=== PATIENT | male | born 1965 | race Caucasian/White ===

== ENCOUNTER 2020-10-28 11:12 | Emergency (ER) | payer OTHER, SELFPAY ==
[2020-10-28] VITALS (11 sets, daily range): BP systolic 153–183; BP diastolic 80–105; PULSE 75–91; RESP 18; TEMP 36.6; O2SAT 97–100; BMI 31.5
--- NOTE | 2020-10-28 11:46 | ED.GENADULT ---
HPI - General Adult General Chief complaint: Abdominal Pain Stated complaint: stomach pain Time Seen by Provider: 10/28/20 11:39 Source: patient and family Mode of arrival: Ambulatory Limitations: no limitations Related Data Home Medications Medication Instructions Recorded Confirmed colchicine PO 05/16/19 05/16/19 lisinopril PO 05/16/19 05/16/19 Previous Rx's Medication Instructions Recorded naproxen 500 mg tablet 500 mg PO BID PRN #20 tab 05/16/19 prednisone 5 mg tablet 5 mg PO DAILY #29 tab 05/16/19 Patient History Social History Smoking Status: Former smoker Smoking Status: Former smoker alcohol intake frequency: 0-2 drinks per day Substance Use Type: does not use Exam Initial Vital Signs Initial Vital Signs: Vital Signs Temperature 98 F 10/28/20 11:21 Pulse Rate 87 10/28/20 11:21 Respiratory Rate 18 10/28/20 11:21 Blood Pressure 181/105 H 10/28/20 11:21 Pulse Oximetry 100 10/28/20 11:21 Course Vital Signs Vital signs: Vital Signs - 8 hr 10/28/20 11:21 Temperature 98 F Pulse Rate 87 Respiratory Rate 18 Blood Pressure 181/105 H Pulse Oximetry 100 Discharge Plan Departure Prescriptions: No Action colchicine PO RF: 0 lisinopril PO RF: 0 naproxen 500 mg tablet 500 mg PO BID PRN (Reason: pain) Qty: 20 RF: 0 prednisone 5 mg tablet 5 mg PO DAILY Qty: 29 RF: 0
--- NOTE | 2020-10-28 11:50 | ED.GENADULT ---
HPI - General Adult General Chief complaint: Abdominal Pain Stated complaint: stomach pain Time Seen by Provider: 10/28/20 11:39 Source: patient and family Mode of arrival: Ambulatory Limitations: no limitations History of Present Illness HPI narrative: Patient is a 54-year-old male who is concerned about constipation. Earlier this week he underwent a right shoulder surgery for rotator cuff repair and biceps tendon repair. He has been on pain medication. He states that yesterday and today started having left-sided abdominal pain. He thought potentially he was constipated as he felt like he had to have a bowel movement but then could not. He is also describing some urinary hesitancy. No fevers. He had has not taken any pain medicine since last evening because of the concern that was causing his issues. He has been on Colace. No fevers. Has had Meckel's diverticulum in the past with a bowel resection secondary to this. Related Data Home Medications Medication Instructions Recorded Confirmed colchicine PO 05/16/19 05/16/19 lisinopril PO 05/16/19 05/16/19 Previous Rx's Medication Instructions Recorded naproxen 500 mg tablet 500 mg PO BID PRN #20 tab 05/16/19 prednisone 5 mg tablet 5 mg PO DAILY #29 tab 05/16/19 Allergies Allergy/AdvReac Type Severity Reaction Status Date / Time No Known Drug Allergies Allergy Verified 10/28/20 12:05 Review of Systems Constitutional Constitutional: Denies fever(s) and Denies headache(s) ENT Ears, Nose, Mouth, and Throat: Denies headache(s) Cardiovascular Cardiovascular: Denies chest pain and Denies dyspnea Respiratory Respiratory: Denies dyspnea Gastrointestinal Gastrointestinal: Reports abdominal pain, Reports constipation, Reports nausea and Denies vomiting Genitourinary Genitourinary: Denies dysuria Genitourinary: Denies dysuria Musculoskeletal Musculoskeletal: Denies arthralgias and Denies myalgias Integumentary/Breasts Skin/Breast: Denies lesions and Denies rash Neurologic Neurologic: Denies behavioral changes, Denies confusion and Denies headache(s) Psychiatric Psychiatric: Denies behavioral changes and Denies confusion Hematologic/Lymphatic Hematologic/Lymphatic: Denies easy bleeding and Denies easy bruising Allergic/Immunologic Allergic/Immunologic: Denies urticaria Patient History Medical History Meckel's diverticulum Surgical History History of bowel resection Social History Smoking Status: Former smoker Smoking Status: Former smoker alcohol intake frequency: 0-2 drinks per day Substance Use Type: does not use Exam Initial Vital Signs Initial Vital Signs: Vital Signs Pulse Oximetry 100 10/28/20 11:19 Const General: cooperative and comfortable Limitations: mental status not altered HENIA Head: normal to inspection and normocephalic Resp Effort & Inspection: normal respiratory effort Auscultation: clear to auscultation bilaterally Cardio Rate: regular rate Rhythm: regular rhythm GI Inspection: non-distended Palpation: soft and tender (Left side of abdomen) Skin Lesions: no lesions Rashes: no rashes Neuro General: patient alert and patient awake Cognition: normal cognition Speech: speech normal Extrem General: capillary refill normal Other: Right shoulder in sling with surgical bandages in place Psych Appearance: grossly normal and well kempt Course Orders Ordered: ED Orders 10/28/20 12:10 Complete Blood Count AUTO DIFF Stat Comprehensive Metabolic Panel Stat Lipase Stat 10/28/20 12:49 CT abdomen pelvis w con Stat Discontinued Medications Hydromorphone HCl (Hydromorphone 1 Mg Inj) 1 mg IV NOW ONE Stop: 10/28/20 12:00 Last Admin: 10/28/20 12:10 Dose: 1 mg Documented by: SILVANA Sodium Chloride (Normal Saline 0.9%) 1,000 mls @ 1,000 mls/hr IV BOLUS ONE Stop: 10/28/20 12:58 Last Infusion: 10/28/20 13:11 Dose: 0 mls/hr Documented by: Admin: 10/28/20 12:10 Dose: 1,000 mls/hr Documented by: SILVANA Vital Signs Vital signs: Vital Signs - 8 hr 10/28/20 11:19 10/28/20 11:20 10/28/20 11:21 Temperature 98 F Pulse Rate 91 H 87 Respiratory Rate 18 Blood Pressure 181/105 H 181/105 H Pulse Oximetry 100 100 100 10/28/20 11:30 10/28/20 12:00 10/28/20 12:29 Temperature Pulse Rate 80 76 77 Respiratory Rate Blood Pressure 154/87 H 156/84 H Pulse Oximetry 98 99 97 10/28/20 12:31 10/28/20 12:34 10/28/20 12:52 Temperature Pulse Rate 75 86 Respiratory Rate Blood Pressure 183/103 H 169/83 H Pulse Oximetry 98 99 10/28/20 13:00 10/28/20 13:30 Temperature Pulse Rate 83 79 Respiratory Rate Blood Pressure 153/80 H 155/88 H Pulse Oximetry 98 97 Medical Decision Making Medical Records Medical records reviewed: Yes I reviewed the patient's medical records. Lab Data Lab results reviewed: Yes I reviewed the patient's lab results. Result diagrams: 10/28/20 12:10 10/28/20 12:10 Labs: Lab Results 10/28/20 10/28/20 Range/Units 12:10 12:10 WBC 8.0 (4.5-11.0) X10^3/uL RBC 4.20 L (4.5-5.9) X10^6/uL Hgb 13.8 (13.5-17.5) g/dL Hct 39.9 L (41-53) % MCV 95.1 (80-100) fL MCH 32.9 (26-34) PG MCHC 34.6 (30-36) % RDW 13.0 (11.6-14.8) % Plt Count 211 (150-400) X10^3/uL Neut % (Auto) 81.6 H (50-75) % Lymph % (Auto) 10.5 L (25-40) % Heard % (Auto) 6.3 (3-14) % Eos % (Auto) 1.0 L (2-4) % Baso % (Auto) 0.6 (0-2) % Neut # (Auto) 6500 (1924-0966) /uL Lymph # (Auto) 800 L (1971-9583) /uL Heard # (Auto) 500 (0-900) /uL Eos # (Auto) 100 (0-450) /uL Baso # (Auto) 100 (0-100) /uL Sodium 135 L (137-145) mmol/L Potassium 4.3 (3.4-5.1) mmol/L Chloride 101 (98-107) mmol/L Carbon Dioxide 30 (22-32) mmol/L BUN 13 (9-20) mg/dL Creatinine 0.69 (0.66-1.25) mg/dL Estimated GFR > 60.0 (>60) mL/min BUN/Creatinine Ratio 18.8 (6-22) Glucose 136 H (70-100) mg/dL Calcium 9.0 (8.4-10.2) mg/dL Total Bilirubin 1.0 (0.2-1.3) mg/dL AST 27 (17-59) IU/L ALT 22 (<50) IU/L Alkaline Phosphatase 70 (38-126) U/L Total Protein 6.8 (6.3-8.2) g/dL Albumin 4.1 (3.5-5.0) g/dL Globulin 2.7 (1.7-4.1) g/dL Albumin/Globulin Ratio 1.5 (1.0-2.8) Lipase 38 (23-300) U/L Imaging Data CT scan - abdomen/pelvis: Radiologist's Impression: [address] [id number] Scan ReportSigned Patient: Frandy Villa R#: [id number]: 1965Acct:[id number]/Sex: 54 / MDate of Service: 10/28/20Loc: EDAccession Number: [id number] Procedure: CT abdomen pelvis w con Ordering Provider: Nitesh Pinto D.O. PROCEDURE: CT ABDOMEN PELVIS W CON INDICATIONS: Left-sided abdominal pain TECHNIQUE: After the administration of intravenous contrast, 5 mm thick sections acquired from the diaphragm to the symphysis. 5 mm coronal and sagittal reformats were acquired. For radiation dose reduction, the following was used: automated exposure control, adjustment of mA and/or kV according to patient size. COMPARISON: None. FINDINGS: Image quality: There is streak artifact seen through the upper abdomen. ABDOMEN: Lung bases: Lung bases are clear. Heart size is normal. Solid organs: Liver is normal in size and enhancement. Gallbladder wall is not thickened. Biliary system is non dilated. Pancreas enhances normally. Spleen is normal in size and enhancement. No adrenal nodules. Kidneys demonstrate normal size and enhancement, without hydronephrosis. Peritoneum and bowel: There is focal prominent wall thickening seen involving the distal stomach near the pylorus as well as the proximal duodenum. The distal gastric wall measures up to 1.4 cm. There is generalized wall thickening seen involving the descending colon and the sigmoid colon. No concepción bowel wall thickening can be seen elsewhere. However, there is inflammatory change with seen within the fat surrounding the duodenum. No free air or significant free fluid can be seen. A normal appendix is incidentally noted. Nodes and vessels: Borderline prominent upper abdominal lymph nodes are seen. However, there is no retroperitoneal or mesenteric adenopathy by size criteria. Aorta and inferior vena cava are normal in size. Miscellaneous: No ventral hernias. PELVIS: Genitourinary: Bladder wall thickness is normal. Miscellaneous: No inguinal hernias or adenopathy. Bones: No suspicious bony lesions. No vertebral body compression fractures. Generalized degenerative changes are seen, which are worst at the L5-S1 level. IMPRESSION: Generalized wall thickening can be seen involving the descending colon and the sigmoid. This is likely related to the presenting history of left-sided abdominal pain. Please correlate with potential infectious and inflammatory causes of colitis. No findings of perforation or abscess can be seen. Focal abnormal were thickening can be seen involving the distal stomach and proximal duodenum. Neoplasm is suspected. Inflammatory changes considered to be much less likely. Borderline prominent upper abdominal lymph nodes are seen, which may be related to metastatic disease. Please consider surgical consultation with upper endoscopy for further evaluation. Generalized inflammatory changes can be seen surrounding the duodenum. Incidental note is made of: Focal L5-S1 degenerative change Note: Findings and recommendations discussed by telephone with Dr. Pinto at 12:10 p.m. [place] time on October 28, 2020. Dictated by: David Avila M.D. on 10/28/2020 at 12:05 Approved by: David Avila M.D. on 10/28/2020 at 12:13 MDM Narrative Medical decision making narrative: Patient stated that his symptoms completely resolved after fluids and pain medicine. CT scan shows distal colon thickening consistent with colitis. Low suspicion for infectious colitis so we will hold on any antibiotics. He also has thickening of the distal stomach. I did discuss this with the patient. I did inform him that there was concerned that this potentially could be a neoplasm. He stated that his last endoscopy was about 4 years ago prior to his surgery for the Meckel's diverticulum which was 2 years ago. He has had reflux past although he is not on any reflux medication now. He is not having any fevers. He was given information to follow-up with our surgical group here in [facility] although he may also contact his GI provider that he has seen in the past. He expressed understanding of the importance of following up for these findings. Discharge Plan Departure Patient Disposition: Home Clinical Impression: Abdominal pain, Gastric wall thickening Instructions: DI for Colitis Activity Restrictions/Additional Instructions: Follow all of the postoperative instructions given to by the orthopedic surgeon. I would recommend that you continue with the stool softener as long as you are taking the pain medicine. I also recommend that you contact either the [place] surgeon's group here at the [facility] at [phone] or your GI provider you have seen in the past to discuss the need for an endoscopy to further evaluate the incidental findings of the thickening of the wall of your stomach. This is an important finding that needs to be followed up on. Return to the emergency department for any new or worsening symptoms Prescriptions: No Action colchicine PO RF: 0 lisinopril PO RF: 0 naproxen 500 mg tablet 500 mg PO BID PRN (Reason: pain) Qty: 20 RF: 0 prednisone 5 mg tablet 5 mg PO DAILY Qty: 29 RF: 0 Referrals: Troy Berger MD [Primary Care Provider] -
[2020-10-28] MEDS: SODIUM CHLORIDE 0.9% 1,000 ML 1000 ML IV (12:10)
[2020-10-28] MEDS: HYDROMORPHONE 1 MG INJ IV (12:10)
[2020-10-28 12:23] LABS: Add Manual Diff / Slide Review NO; Basophils Absolute Auto 100 /uL (0-100); Basophils Percent Auto 0.6 % (0-2); Eosinophils Absolute Auto 100 /uL (0-450); Hematocrit 39.9 % (41-53); Hemoglobin 13.8 g/dL (13.5-17.5); Lymphocytes Absolute Auto 800 /uL (1100-4500); Lymphocytes Percent Auto 10.5 % (25-40); Mean Corpuscular HGB Conc 34.6 % (30-36); Mean Corpuscular Hemoglobin 32.9 PG (26-34); Mean Corpuscular Volume 95.1 fL (80-100); Monocytes Absolute Auto 500 /uL (0-900); Monocytes Percent Auto 6.3 % (3-14); Neutrophils Absolute Auto 6500 /uL (1500-7000); Neutrophils Percent Auto 81.6 % (50-75); Platelet Count 211 X10^3/uL (150-400)
[2020-10-28 12:32] LABS: Alanine Aminotransferase 22 IU/L (<50); Albumin 4.1 g/dL (3.5-5.0); Albumin Globulin Ratio 1.5 (1.0-2.8); Alkaline Phosphatase 70 U/L (38-126); Aspartate Aminotransferase 27 IU/L (17-59); BUN Creatinine Ratio 18.8 (6-22); Blood Urea Nitrogen 13 mg/dL (9-20); Carbon Dioxide 30 mmol/L (22-32); Chloride 101 mmol/L (98-107); Estimated Glomerular Filt Rate > 60.0 mL/min (>60); Globulin 2.7 g/dL (1.7-4.1); Glucose 136 mg/dL (70-100); HEMOLYSIS 17 (0-50); Lipase 38 U/L (23-300); Potassium 4.3 mmol/L (3.4-5.1); Sodium 135 mmol/L (137-145); Total Protein 6.8 g/dL (6.3-8.2)
--- NOTE | 2020-10-28 12:49 | DI.CT.S_ITS ---
PROCEDURE: CT ABDOMEN PELVIS W CON INDICATIONS: Left-sided abdominal pain TECHNIQUE: After the administration of intravenous contrast, 5 mm thick sections acquired from the diaphragm to the symphysis. 5 mm coronal and sagittal reformats were acquired. For radiation dose reduction, the following was used: automated exposure control, adjustment of mA and/or kV according to patient size. COMPARISON: None. FINDINGS: Image quality: There is streak artifact seen through the upper abdomen. ABDOMEN: Lung bases: Lung bases are clear. Heart size is normal. Solid organs: Liver is normal in size and enhancement. Gallbladder wall is not thickened. Biliary system is non dilated. Pancreas enhances normally. Spleen is normal in size and enhancement. No adrenal nodules. Kidneys demonstrate normal size and enhancement, without hydronephrosis. Peritoneum and bowel: There is focal prominent wall thickening seen involving the distal stomach near the pylorus as well as the proximal duodenum. The distal gastric wall measures up to 1.4 cm. There is generalized wall thickening seen involving the descending colon and the sigmoid colon. No concepción bowel wall thickening can be seen elsewhere. However, there is inflammatory change with seen within the fat surrounding the duodenum. No free air or significant free fluid can be seen. A normal appendix is incidentally noted. Nodes and vessels: Borderline prominent upper abdominal lymph nodes are seen. However, there is no retroperitoneal or mesenteric adenopathy by size criteria. Aorta and inferior vena cava are normal in size. Miscellaneous: No ventral hernias. PELVIS: Genitourinary: Bladder wall thickness is normal. Miscellaneous: No inguinal hernias or adenopathy. Bones: No suspicious bony lesions. No vertebral body compression fractures. Generalized degenerative changes are seen, which are worst at the L5-S1 level. IMPRESSION: Generalized wall thickening can be seen involving the descending colon and the sigmoid. This is likely related to the presenting history of left-sided abdominal pain. Please correlate with potential infectious and inflammatory causes of colitis. No findings of perforation or abscess can be seen. Focal abnormal were thickening can be seen involving the distal stomach and proximal duodenum. Neoplasm is suspected. Inflammatory changes considered to be much less likely. Borderline prominent upper abdominal lymph nodes are seen, which may be related to metastatic disease. Please consider surgical consultation with upper endoscopy for further evaluation. Generalized inflammatory changes can be seen surrounding the duodenum. Incidental note is made of: Focal L5-S1 degenerative change Note: Findings and recommendations discussed by telephone with Dr. Pinto at 12:10 p.m. [place] time on October 28, 2020. Dictated by: David Avila M.D. on 10/28/2020 at 12:05 Approved by: David Avila M.D. on 10/28/2020 at 12:13
== END 2020-10-28 14:39 | disposition home or self-care (01) ==
PROVIDERS: Emergency Provider Emergency Medicine; PCP Family Medicine
DX: R10.9 Unspecified abdominal pain (principal); K31.89 Other diseases of stomach and duodenum; K59.00 Constipation, unspecified; R11.0 Nausea; Q43.0 Meckel's diverticulum (displaced) (hypertrophic)
CPT/HCPCS: 36415; 74177; 80053; 83690; 85025; 96361; 96374; 99283; 99284; J1170; Q9967

== ENCOUNTER 2020-11-03 16:04 | Emergency (ER) | payer OTHER, SELFPAY ==
[2020-11-03] VITALS (11 sets, daily range): BP systolic 127–155; BP diastolic 76–89; PULSE 70–89; RESP 16; TEMP 36.7; O2SAT 93–100; BMI 31.5
[2020-11-03 17:04] LABS: Add Manual Diff / Slide Review NO; Basophils Absolute Auto 100 /uL (0-100); Basophils Percent Auto 1.2 % (0-2); Eosinophils Absolute Auto 200 /uL (0-450); Eosinophils Percent Auto 1.5 % (2-4); Hematocrit 33.6 % (41-53); Hemoglobin 11.5 g/dL (13.5-17.5); Lymphocytes Absolute Auto 1600 /uL (1100-4500); Lymphocytes Percent Auto 15.2 % (25-40); Mean Corpuscular HGB Conc 34.4 % (30-36); Mean Corpuscular Hemoglobin 32.7 PG (26-34); Mean Corpuscular Volume 95.2 fL (80-100); Monocytes Absolute Auto 600 /uL (0-900); Monocytes Percent Auto 6.1 % (3-14); Neutrophils Absolute Auto 7900 /uL (1500-7000); Platelet Count 361 X10^3/uL (150-400); Red Blood Cell Count 3.52 X10^6/uL (4.5-5.9); Red Cell Distribution Width 12.8 % (11.6-14.8); White Blood Cell Count 10.3 X10^3/uL (4.5-11.0)
[2020-11-03 17:12] LABS: INR 1.1 (0.9-1.3); Prothrombin Time 12.9 SECONDS (10.1-12.7)
[2020-11-03 17:15] LABS: PTT Partial Thromboplastin Tim 39 SECONDS (26.4-36.2)
--- NOTE | 2020-11-03 17:17 | ED_ITS ---
HPI - GI Bleed <KENDALL Dhaliwal - Last Filed: 11/03/20 20:45> General Chief complaint: GI Bleed Stated complaint: abdominal pain and black stool Time Seen by Provider: 11/03/20 16:56 Source: patient Mode of arrival: Ambulatory History of Present Illness HPI Narrative: 54yo male with a history of epigastric thickening, partial colon removal from Meckel's diverticulum, and recent rotator cuff surgery in the [facility] of October, presents to the emergency department for ongoing abdominal discomfort and black tarry stools. He was seen and evaluated on 10/28/2020 in the ED for constipation. After surgery had been taking oxycodone which was thought to have contributed to the problem. He had been taking stool softener but only once a day. He has decreased oxycodone over the past week and has been taking naproxen. He states after the visit he had passed some stools. However, on Saturday, Oct 30 he noticed intermittent diarrhea that was black and tarry, he states this stuck to the side of the toilet. Patient noticed decreased stools over the past week with ?a few peanut-like drops today. Patient reports epigastric burning, intermittent nausea without vomiting, and ?stomach rumbling ?. Patient denies any bright red blood in stool, dizziness, syncope, chest pain, shortness of breath, or any other concerns. Related Data Home Medications Medication Instructions Recorded Confirmed colchicine PO 05/16/19 11/08/20 lisinopril PO 05/16/19 11/08/20 Previous Rx's Medication Instructions Recorded naproxen 500 mg tablet 500 mg PO BID PRN #20 tab 05/16/19 omeprazole 20 mg PO DAILY 14 Days #14 cap 11/03/20 Allergies Allergy/AdvReac Type Severity Reaction Status Date / Time No Known Drug Allergies Allergy Verified 11/08/20 15:28 Review of Systems <KENDALL Dhaliwal - Last Filed: 11/03/20 20:45> Review of Systems Narrative: REVIEW OF SYSTEMS: GENERAL: Denies fever. HENT: No head trauma. CARDIOVASCULAR: No chest pain. RESPIRATORY: No cough. GASTROINTESTINAL: Complains of abdominal pain and black tarry stools, see HPI GENITOURINARY: No flank pain. MUSCULOSKELETAL: No pain. INTEGUMENTARY: No rash. NEURO: No numbness, tingling, memory loss, confusion, or headaches. PSYCH: No behavior or mood changes. Patient History <KENDALL Dhaliwal - Last Filed: 11/03/20 20:45> Medical History (Updated 11/08/20 @ 15:30 by Albania Duncan RN) Hypertension Meckel's diverticulum Torn rotator cuff Surgical History History of bowel resection Social History (Updated 11/08/20 @ 15:30 by Albania Duncan RN) Smoking Status: Former smoker alcohol intake: current substance use type: does not use Smoking Status: Former smoker alcohol intake frequency: 0-2 drinks per day Substance Use Type: does not use Exam <KENDALL Dhaliwal - Last Filed: 11/03/20 20:45> Initial Vital Signs Initial Vital Signs: Vital Signs Temperature 98.0 F 11/03/20 16:13 Pulse Rate 72 11/03/20 16:13 Respiratory Rate 16 11/03/20 16:13 Blood Pressure 141/87 H 11/03/20 16:13 Pulse Oximetry 93 11/03/20 16:13 PHYSICAL EXAMINATION: GENERAL: Awake and alert, well-appearing. HENT: Normocephalic, atraumatic. Hearing intact. Oral mucosa is pink and moist. EYES: Conjunctiva pink, sclera white, no periorbital swelling. CARDIOVASCULAR: S1 and S2 sounds normal. Regular rate and rhythm, no murmurs, clicks, or bruits. No pedal edema. RESPIRATORY: Normal respiratory rate, trachea midline, airway patent. No stridor, nasal flaring or accessory muscle use. Lungs are clear in all gil[place] without wheeze, rhonchi, or crackles. GASTROINTESTINAL: Bowel sounds normoactive. Abdomen is soft, some epigastric tenderness. No organomegaly, no palpable masses. MUSCULOSKELETAL: Right arm in sling. Normal gait and coordination. Equal tone and mass bilaterally. EXTREMITIES: CMS intact. SKIN: Warm, dry, soft, appropriate color for ethnicity. No lesions, rashes, or wounds to visualized areas. NEURO: Alert and Oriented X 3. Good coordination. No ataxia, or sensory deficits, or cognitive issues. PSYCH: Appropriate affect and mood. <Isamar Soto DO - Last Filed: 11/09/20 09:18> Initial Vital Signs Initial Vital Signs: Vital Signs Temperature 98.0 F 11/03/20 16:13 Pulse Rate 72 11/03/20 16:13 Respiratory Rate 16 11/03/20 16:13 Blood Pressure 141/87 H 11/03/20 16:13 Pulse Oximetry 93 11/03/20 16:13 Course <KENDALL Dhaliwal - Last Filed: 11/03/20 20:45> Course Course Narrative: 1939: I discussed changes in hematocrit and hemoglobin as well as CT scans with Dr. Borrego. Discussed that patient does not need an urgent scope at time and currently hemodynamically stable. He advised patient to have a scope within the week due to symptoms. Discussed starting him on omeprazole. I spoke with patient, explained the skin in much detail, explained the importance of discontinuing NSAIDs and starting omeprazole. Strict ED precautions given patient and agreed with plan of care verbalized understanding. Orders Ordered: Discontinued Medications Sodium Chloride (Normal Saline 0.9%) 1,000 mls @ 1,000 mls/hr IV BOLUS ONE Stop: 11/03/20 18:23 Last Infusion: 11/03/20 19:12 Dose: 0 mls/hr Documented by: Admin: 11/03/20 17:50 Dose: 1,000 mls/hr Documented by: KATTY Pantoprazole Sodium (Pantoprazole 40 Mg Vial) 80 mg IV NOW ONE Stop: 11/03/20 19:21 Last Admin: 11/03/20 19:38 Dose: 80 mg Documented by: SILVANA Consultations Consultation #1: Patient staffed with Dr. Soto discussed test, test results, plan of care. Vital Signs Vital signs: Vital Signs - 8 hr 11/03/20 16:13 11/03/20 16:49 11/03/20 17:00 Temperature 98.0 F Pulse Rate 72 70 72 Respiratory Rate 16 Blood Pressure 141/87 H 144/83 H Pulse Oximetry 93 99 98 11/03/20 17:01 11/03/20 17:30 11/03/20 18:00 Temperature Pulse Rate 76 70 74 Respiratory Rate Blood Pressure 127/84 144/79 H 135/85 Pulse Oximetry 98 99 99 11/03/20 18:19 11/03/20 18:30 11/03/20 18:49 Temperature Pulse Rate 79 79 78 Respiratory Rate Blood Pressure 143/83 H 142/83 H 132/89 Pulse Oximetry 99 99 100 11/03/20 19:00 11/03/20 19:30 Temperature Pulse Rate 74 89 Respiratory Rate Blood Pressure 136/76 155/84 H Pulse Oximetry 100 99 <Isamar Soto DO - Last Filed: 11/09/20 09:18> Orders Ordered: Discontinued Medications Sodium Chloride (Normal Saline 0.9%) 1,000 mls @ 1,000 mls/hr IV BOLUS ONE Stop: 11/03/20 18:23 Last Infusion: 11/03/20 19:12 Dose: 0 mls/hr Documented by: Admin: 11/03/20 17:50 Dose: 1,000 mls/hr Documented by: KATTY Pantoprazole Sodium (Pantoprazole 40 Mg Vial) 80 mg IV NOW ONE Stop: 11/03/20 19:21 Last Admin: 11/03/20 19:38 Dose: 80 mg Documented by: MMINOR Vital Signs Vital signs: Vital Signs - 8 hr 11/03/20 16:13 11/03/20 16:49 11/03/20 17:00 Temperature 98.0 F Pulse Rate 72 70 72 Respiratory Rate 16 Blood Pressure 141/87 H 144/83 H Pulse Oximetry 93 99 98 11/03/20 17:01 11/03/20 17:30 11/03/20 18:00 Temperature Pulse Rate 76 70 74 Respiratory Rate Blood Pressure 127/84 144/79 H 135/85 Pulse Oximetry 98 99 99 11/03/20 18:19 11/03/20 18:30 11/03/20 18:49 Temperature Pulse Rate 79 79 78 Respiratory Rate Blood Pressure 143/83 H 142/83 H 132/89 Pulse Oximetry 99 99 100 11/03/20 19:00 11/03/20 19:30 Temperature Pulse Rate 74 89 Respiratory Rate Blood Pressure 136/76 155/84 H Pulse Oximetry 100 99 MDM - GI Bleed <KENDALL Dhaliwal - Last Filed: 11/03/20 20:45> Medical Records Attestation: I reviewed the patient's medical records. Lab Data Attestation: I reviewed the patient's lab results. Result diagrams: 11/03/20 16:05 11/03/20 16:05 Labs: Lab Results 11/03/20 11/03/20 11/03/20 Range/Units 16:05 16:05 16:05 WBC 10.3 (4.5-11.0) X10^3/uL RBC 3.52 L (4.5-5.9) X10^6/uL Hgb 11.5 L (13.5-17.5) g/dL Hct 33.6 L (41-53) % MCV 95.2 (80-100) fL MCH 32.7 (26-34) PG MCHC 34.4 (30-36) % RDW 12.8 (11.6-14.8) % Plt Count 361 (150-400) X10^3/uL Neut % (Auto) 76.0 H (50-75) % Lymph % (Auto) 15.2 L (25-40) % [place] % (Auto) 6.1 (3-14) % Eos % (Auto) 1.5 L (2-4) % Baso % (Auto) 1.2 (0-2) % Neut # (Auto) 7900 H (8367-5373) /uL Lymph # (Auto) 1600 (3127-8760) /uL [place] # (Auto) 600 (0-900) /uL Eos # (Auto) 200 (0-450) /uL Baso # (Auto) 100 (0-100) /uL PT 12.9 H (10.1-12.7) SECONDS INR 1.1 (0.9-1.3) APTT 39 H (26.4-36.2) SECONDS Sodium 134 L (137-145) mmol/L Potassium 3.8 (3.4-5.1) mmol/L Chloride 98 (98-107) mmol/L Carbon Dioxide 30 (22-32) mmol/L BUN 15 (9-20) mg/dL Creatinine 0.78 (0.66-1.25) mg/dL Estimated GFR > 60.0 (>60) mL/min BUN/Creatinine Ratio 19.2 (6-22) Glucose 117 H (70-100) mg/dL Calcium 9.4 (8.4-10.2) mg/dL Total Bilirubin 0.7 (0.2-1.3) mg/dL AST 35 (17-59) IU/L ALT 34 (<50) IU/L Alkaline Phosphatase 85 (38-126) U/L Total Protein 7.3 (6.3-8.2) g/dL Albumin 4.3 (3.5-5.0) g/dL Globulin 3.0 (1.7-4.1) g/dL Albumin/Globulin Ratio 1.4 (1.0-2.8) Urine Dip Bedside Urine Glucose Negative Bedside Urine Bilirubin - Negative Bedside Urine Ketone - Negative Urine Specific [place] 1.015 Bedside Urine Occult Blood - Negative Bedside Urine pH 6.0 Bedside Urine Protein - Negative Bedside Urine Urobilinogen - Negative Bedside Urine Nitrite - Negative Bedside Urine Leukocytes - Negative Esterase Imaging Data CT scan - abdomen/pelvis: Radiologist's Impression: [address] [id number] Scan ReportSigned Patient: Frandy Villa JMR#: [id number]: [id number]:[id number]/Sex: 54 / MDate of Service: 11/03/20Loc: EDAccession Number: [id number] Procedure: CT abdomen pelvis w con Ordering Provider: Janice Resendiz PROCEDURE: CT ABDOMEN PELVIS W CON INDICATIONS: epigastric pain, decreased stool, r/o blockage TECHNIQUE: After the administration of intravenous contrast, 5 mm thick sections acquired from the diaphragm to the symphysis. 5 mm coronal and sagittal reformats were acquired. For radiation dose reduction, the following was used: automated exposure control, adjustment of mA and/or kV according to patient size. COMPARISON: [facility], CT, CT ABDOMEN PELVIS W CON, 10/28/2020, 12:39. FINDINGS: Image quality: Excellent. ABDOMEN: Lung bases: Lung bases are clear. Heart size is normal. Small hiatal hernia. Solid organs: Liver is normal in size and enhancement. Gallbladder is normal. Biliary system is non dilated. Pancreas enhances normally. Spleen is normal in size and enhancement. No adrenal nodules. Kidneys demonstrate normal size and enhancement, without hydronephrosis. Peritoneum and bowel: There is marked thickening of gastric antrum and proximal duodenum. Mild colonic wall thickening involving the splenic flexure, descending and sigmoid colon. Bowel loops demonstrate normal caliber. Normal appendix. No free fluid or air. Nodes and vessels: No retroperitoneal or mesenteric adenopathy by size criteria. Aorta and inferior vena cava are normal in size. Miscellaneous: No ventral hernias. PELVIS: Genitourinary: Bladder wall thickness is normal. Miscellaneous: No inguinal hernias or adenopathy. Bones: No suspicious bony lesions. No vertebral body compression fractures. Degenerative changes in lumbar spine. IMPRESSION: 1. Marked thickening of gastric antrum and proximal duodenum consistent with gastritis/duodenitis. Neoplastic etiology is not excluded. Recommend endoscopic follow-up. 2. Mild thickening of splenic flexure, descending and sigmoid colon consistent with colitis. 3. No findings to suggest bowel obstruction. 4. No free fluid or free air. Dictated by: Anjelica Soriano M.D. on 11/03/2020 at 18:46 Approved by: Anjelica Soriano M.D. on 11/03/2020 at 18:51 MDM Narrative Medical decision making narrative: 54-year-old male presenting to the emergency department for continued abdominal discomfort with new onset dark tarry stools approximately week ago. I suspect this is most likely due to NSAID use and or gastric ulcer or inflammation. Differential also includes gastroenteritis. Patient has gastric thickening which is consistent with previous CT as well as findings of colitis. Patient did follow-up with General surgery and discussion was had where they deferred the scope for now. However, due to patient's new onset black tarry stools and decreased in Hb and HCt over the past week, I spoke with general surgery, Dr. Borrego, and a scope was recommended within the week. Patient was started on PPIs. He was instructed to discontinue any NSAID use. And call the general surgery office tomorrow to schedule an appointment. Less concern for blockage due to lack of vomiting, infant pain, and lack of findings on CT. Patient is hemodynamically stable, non tachycardic, blood pressure within normal limits. He also reports that his dark stools are decreasing in number which is reassuring and patient is stable for discharge. There is no indication for antibiotics, white count normal limits, patient is afebrile, in no signs of acute infection. Very strict ED return precautions given for new or worsening symptoms. Patient agreed to plan of care verbalized understanding. <Isamar Soto, DO - Last Filed: 11/09/20 09:18> Lab Data Labs: Lab Results 11/03/20 11/03/2011/03/20 Range/Units 16:05 16:05 16:05 WBC 10.3 (4.5-11.0) X10^3/uL RBC 3.52 L (4.5-5.9) X10^6/uL Hgb 11.5 L (13.5-17.5) g/dL Hct 33.6 L (41-53) % MCV 95.2 (80-100) fL MCH 32.7 (26-34) PG MCHC 34.4 (30-36) % RDW 12.8 (11.6-14.8) % Plt Count 361 (150-400) X10^3/uL Neut % (Auto) 76.0 H (50-75) % Lymph % (Auto) 15.2 L (25-40) % [place] % (Auto) 6.1 (3-14) % Eos % (Auto) 1.5 L (2-4) % Baso % (Auto) 1.2 (0-2) % Neut # (Auto) 7900 H (7606-7934) /uL Lymph # (Auto) 1600 (2248-1944) /uL [place] # (Auto) 600 (0-900) /uL Eos # (Auto) 200 (0-450) /uL Baso # (Auto) 100 (0-100) /uL PT 12.9 H (10.1-12.7) SECONDS INR 1.1 (0.9-1.3) APTT 39 H (26.4-36.2) SECONDS Sodium 134 L (137-145) mmol/L Potassium 3.8 (3.4-5.1) mmol/L Chloride 98 (98-107) mmol/L Carbon Dioxide 30 (22-32) mmol/L BUN 15 (9-20) mg/dL Creatinine 0.78 (0.66-1.25) mg/dL Estimated GFR > 60.0 (>60) mL/min BUN/Creatinine Ratio 19.2 (6-22) Glucose 117 H (70-100) mg/dL Calcium 9.4 (8.4-10.2) mg/dL Total Bilirubin 0.7 (0.2-1.3) mg/dL AST 35 (17-59) IU/L ALT 34 (<50) IU/L Alkaline Phosphatase 85 (38-126) U/L Total Protein 7.3 (6.3-8.2) g/dL Albumin 4.3 (3.5-5.0) g/dL Globulin 3.0 (1.7-4.1) g/dL Albumin/Globulin Ratio 1.4 (1.0-2.8) Urine Dip Bedside Urine Glucose Negative Bedside Urine Bilirubin - Negative Bedside Urine Ketone - Negative Urine Specific [place] 1.015 Bedside Urine Occult Blood - Negative Bedside Urine pH 6.0 Bedside Urine Protein - Negative Bedside Urine Urobilinogen - Negative Bedside Urine Nitrite - Negative Bedside Urine Leukocytes - Negative Esterase ECG Data Attestation: I personally reviewed and interpreted this ECG as follows: Interpretation: Sinus rhythm, rate of 70, P are 133, QRS of 94 and QTC of 426. Patient has Q-wave in 380 and very small and AVF. No ST elevation appreciated. T-wave inversion in 3 not appreciated in other leads. Discharge Plan Departure Patient Disposition: Home Clinical Impression: Gastric wall thickening, Colitis Abdominal pain Qualifiers: Abdominal location: generalized Qualified Code(s): R10.84 - Generalized abdominal pain Instructions: DI for Colitis Activity Restrictions/Additional Instructions: Thank you for entrusting me with your care today. As discussed, a decrease and blood volume, this may be due to the blood in your stool. Your CT shows thickening of the gastric antrum and proximal duodenum and mild thickening of the splenic flexure and descending sigmoid colon. I have started you on omeprazole, please take this daily for the next 2 weeks. This prescription was sent to [facility] in [place]. Take this medication in the morning before breakfast if possible. Please follow-up with the surgeon listed below or your GI for further consultat ion and discussion of scoping in the next week. Discontinue any NSAIDs such as Aleve or naproxen or ibuprofen. Return to the emergency department for any new or worsening symptoms. Prescriptions: New omeprazole 20 mg capsule,delayed release(DR/EC) 20 mg PO DAILY 14 Days Qty: 14 RF: 0 No Action colchicine PO RF: 0 lisinopril PO RF: 0 naproxen 500 mg tablet 500 mg PO BID PRN (Reason: pain) Qty: 20 RF: 0 Referrals: Troy Berger MD [Primary Care Provider] - Anish Borrego MD [Physician] - <Isamar Soto DO - Last Filed: 11/09/20 09:18> Cosign ED Attending Cosignature Attestation: I was immediately available in the department for consultation. Documentation has been reviewed. Patient case was discussed with myself patient was hemodynamically stable in the department but did have a drop in his hemoglobin/hematocrit from 13.8-11.5 in 6 days. Patient is not currently anticoagulated. CT findings are suspicious for thickening in this may be a source of gastritis and possible cause of his bleeding. Case was discussed with General surgery who feels patient does not need admission at this time but they are happy to scope him within the week, recommendations were given to start PPI and return precautions discussed.
[2020-11-03 17:29] LABS: Alanine Aminotransferase 34 IU/L (<50); Albumin 4.3 g/dL (3.5-5.0); Albumin Globulin Ratio 1.4 (1.0-2.8); Alkaline Phosphatase 85 U/L (38-126); Aspartate Aminotransferase 35 IU/L (17-59); BUN Creatinine Ratio 19.2 (6-22); Bilirubin Total 0.7 mg/dL (0.2-1.3); Blood Urea Nitrogen 15 mg/dL (9-20); Calcium 9.4 mg/dL (8.4-10.2); Carbon Dioxide 30 mmol/L (22-32); Chloride 98 mmol/L (98-107); Estimated Glomerular Filt Rate > 60.0 mL/min (>60); Glucose 117 mg/dL (70-100); HEMOLYSIS < 15 (0-50); Potassium 3.8 mmol/L (3.4-5.1); Sodium 134 mmol/L (137-145); Total Protein 7.3 g/dL (6.3-8.2)
--- NOTE | 2020-11-03 17:37 | DI.CT.S_ITS ---
PROCEDURE: CT ABDOMEN PELVIS W CON INDICATIONS: epigastric pain, decreased stool, r/o blockage TECHNIQUE: After the administration of intravenous contrast, 5 mm thick sections acquired from the diaphragm to the symphysis. 5 mm coronal and sagittal reformats were acquired. For radiation dose reduction, the following was used: automated exposure control, adjustment of mA and/or kV according to patient size. COMPARISON: [facility], CT, CT ABDOMEN PELVIS W CON, 10/28/2020, 12:39. FINDINGS: Image quality: Excellent. ABDOMEN: Lung bases: Lung bases are clear. Heart size is normal. Small hiatal hernia. Solid organs: Liver is normal in size and enhancement. Gallbladder is normal. Biliary system is non dilated. Pancreas enhances normally. Spleen is normal in size and enhancement. No adrenal nodules. Kidneys demonstrate normal size and enhancement, without hydronephrosis. Peritoneum and bowel: There is marked thickening of gastric antrum and proximal duodenum. Mild colonic wall thickening involving the splenic flexure, descending and sigmoid colon. Bowel loops demonstrate normal caliber. Normal appendix. No free fluid or air. Nodes and vessels: No retroperitoneal or mesenteric adenopathy by size criteria. Aorta and inferior vena cava are normal in size. Miscellaneous: No ventral hernias. PELVIS: Genitourinary: Bladder wall thickness is normal. Miscellaneous: No inguinal hernias or adenopathy. Bones: No suspicious bony lesions. No vertebral body compression fractures. Degenerative changes in lumbar spine. IMPRESSION: 1. Marked thickening of gastric antrum and proximal duodenum consistent with gastritis/duodenitis. Neoplastic etiology is not excluded. Recommend endoscopic follow-up. 2. Mild thickening of splenic flexure, descending and sigmoid colon consistent with colitis. 3. No findings to suggest bowel obstruction. 4. No free fluid or free air. Dictated by: Anjelica Soriano M.D. on 11/03/2020 at 18:46 Approved by: Anjelica Soriano M.D. on 11/03/2020 at 18:51
[2020-11-03] MEDS: SODIUM CHLORIDE 0.9% 1,000 ML 1000 ML IV (17:50)
[2020-11-03] MEDS: PANTOPRAZOLE 40 MG VIAL 80 MG IV (19:38)
== END 2020-11-03 19:59 | disposition home or self-care (01) ==
PROVIDERS: Emergency Medicine; Emergency Provider Nurse Practitioner; PCP Family Medicine
DX: K31.89 Other diseases of stomach and duodenum (principal); K52.9 Noninfective gastroenteritis and colitis, unspecified; R10.84 Generalized abdominal pain; R11.0 Nausea; Q43.0 Meckel's diverticulum (displaced) (hypertrophic)
CPT/HCPCS: 36415; 74177; 80053; 81003; 85025; 85610; 85730; 93005; 93010; 96361; 96374; 99284; C9113; Q9967

== ENCOUNTER → 2020-11-08 15:48 | Outpatient (CLI) | payer OTHER, SELFPAY ==
[2020-11-08 16:25] LABS: COVID19 -Nasal RAPID Negative (Negative)
== END ==
PROVIDERS: PCP Family Medicine; Visit Provider Specialist
DX: Z20.828 Contact with and (suspected) exposure to other viral communicable diseases (principal)
CPT/HCPCS: 87635

== ENCOUNTER 2020-11-09 10:16 | Day surgery (SDC) | payer OTHER, SELFPAY ==
[2020-11-09] VITALS (8 sets, daily range): BP systolic 108–146; BP diastolic 64–78; PULSE 66–77; RESP 11–16; TEMP 36.2–36.8; O2SAT 96–100; BMI 31.5
--- NOTE | 2020-11-09 | PATH_ITS ---
[facility] Accession Number: [id number] . 01 Material submitted: . gastrointestinal site - PYLORIC CHANNEL ULCER . 01 Clinical history: . EGD . 02 Diagnosis: Pyloric Channel Ulcer, Biopsy: Gastric antral mucosa with mild chronic, focal active inflammation and reactive foveolar hyperplasia. Negative for Helicobacter organisms by immunohistochemistry. Negative for intestinal metaplasia. Negative for dysplasia or malignancy. MRV 11/15/2020 1411 Local . 02 Electronically signed: . Julito Rojas MD, PhD, Pathologist NPI- [id number] . 01 Gross description: . PYLORIC CHANNEL ULCER: Received in formalin are 4 fragment(s) of barrow, soft tissue measuring 0.4 x 0.3 x 0.3 cm to 0.3 x 0.2 x 0.1 cm submitted entirely in 1 cassette(s) /QBJ 11/12/2020 0321 Local . 02 Microscopic: . An immunohistochemical stain was performed to evaluate for Helicobacter organisms and is negative. The control stain showed appropriate reactivity. . * This test was developed and its performance characteristics determined by [facility]. It has not been cleared or approved by the U.S. Food and Drug Administration. The FDA has determined that such clearance or approval is not necessary. This test is used for clinical purposes. It should not be regarded as investigational or for research. . 02 Pathologist provided ICD-10: K92.2, K29.70 . 02 CPT . 684711, [id number] Performed at: 01 [facility] [address] [facility], [place], [place] [id number] MD Philipp Nelson MD Phone: [phone] Performed at: 02 [facility] [place] [address] [place], [place] [id number] MD Haylie Gonzalez MD Phone: [phone]
[2020-11-09] MEDS: LACTATED RINGERS 1,000 ML 100 ML IV (10:46)
--- NOTE | 2020-11-09 12:53 | SUR.PREOP ---
Patient still waiting to go in for procedure. Apologized for delay and explained situation to patient. Warm blanket provided. .
--- NOTE | 2020-11-09 13:32 | PM.PREOP ---
Pre-operative Note COVID-19 COVID-19 status: Negative Result date/Date tested (Pos, Neg/Pending): 11/08/20 Interval Note History & Physical reviewed/Exam performed by Physician: Yes Changes to H&P: No ASA Class (for procedural sedation): II
[2020-11-09] MEDS: MIDAZOLAM 5 MG/5 ML VIAL IV (14:03)
[2020-11-09] MEDS: fentaNYL 250 MCG/5 ML INJ IV (14:03)
[2020-11-09] MEDS: LIDOCAINE VISCOUS 2% 15 ML SOLUTION PO (14:04)
--- NOTE | 2020-11-09 14:12 | PM.OP.ENDO ---
Operative Date/Time/Diagnoses Date of procedure: 11/09/20 Time of procedure: 14:12 Pre-op diagnosis: History upper GI bleed recent Post-op diagnosis: same (Pyloric channel and duodenal ulcer) Procedure & Clinicians Study performed: EGD with cold biopsy Same procedure as scheduled: Yes Indications: Determine cause of recent upper GI bleed Surgeon: Benjamin Landrum Procedure Notes SCOAP/Timeout: Performed Procedure in detail: The patient had topical anesthetic applied to oropharynx. She was placed in left lateral decubitus position and underwent IV sedation directed by the surgeon consisting of fentanyl and Versed. A bite block was inserted and the scope was advanced through it into the esophagus. The esophagus was unremarkable. GE junction was noted at 41 cm from the incisors.. The stomach insufflated well. There were no lesions seen in the body, antrum or at the incisura. The pyloric channel was narrowed by large ulcer. There appeared to be granulation tissue as well as a an ulcer bed but there was no visible vessel.. The duodenum was cannulated and examined to the 4th part. As I made the turn from the 1st part of the duodenum into the 2nd part of the duodenum there was a 2nd large ulcer and duodenitis surrounding it. No other lesions were seen to the 4th part of the duodenum. The scope was brought back into the stomach and retroflexed. The proximal stomach was normal in appearance.. The scope was straightened and biopsies taken near the pyloric channel ulcer. The scope was then brought out through the esophagus again. No other lesions were seen. The scope was removed and the patient tolerated the procedure well. Scope withdrawal time: Not applicable Sedation minutes: 13 Findings: duodenal ulcer (The turn from the 1st end of the 2nd part of the duodenum) and gastric ulcer (Pyloric channel) Specimen(s): other (Biopsy of the pyloric channel region performed) Complications: none Post-procedure Recommendations: Start medication(s) (Treatment for H pylori empirically.) Follow up: months (One) Disposition: PACU
== END 2020-11-09 14:57 | disposition home or self-care (01) ==
PROVIDERS: PCP Family Medicine; Referring Provider Specialist; Visit Provider Specialist
PROC: 0DJ08ZZ Inspection of Upper Intestinal Tract, Via Natural or Artificial Opening Endoscopic (ICD-10-PCS; CPT 43235; principal; 2020-11-09 12:45)
DX: K29.50 Unspecified chronic gastritis without bleeding (principal); K27.9 Peptic ulcer, site unspecified, unspecified as acute or chronic, without hemorrhage or perforation; I10 Essential (primary) hypertension
CPT/HCPCS: 43239; 99152; J2250; J3010